=== PATIENT | female | born 1975 | race Caucasian/White ===

== ENCOUNTER 2017-07-11 20:32 | Emergency (ER) | payer OTHER ==
[~2017-07-11] VITALS: Ht 162.6 cm; Wt 63.5 kg
[~2017-07-11 20:32] MED LIST: ALPR1TAB6 PO
[2017-07-11] MEDS ORDERED: LIDOCAINE 1% VIAL ONE ×2 (21:00→21:06)
[2017-07-11 21:04] VITALS: BP 122/56
[2017-07-11] MEDS ORDERED: BOOSTRIX VACCINE SYRINGE IM STA (21:07)
--- NOTE | 2017-07-11 21:07 | ER.PDOC ---
General Chief Complaint: Extremities Stated Complaint: FOOT PAIN Time seen by MD: 21:06 Source: patient Exam Limitations: no limitations History of Present Illness Initial Comments Laceration left foot with a knife Onset: just prior to arrival Where: home Severity: moderate Context: laceration Modifying Factors: pain on movement Allergies: Coded Allergies: No Known Allergies (Unverified , 11/04/14) Home Meds Reported Medications Alprazolam (ALPRAZOLAM) 1 Mg Tablet, 1 MG PO QID, TABLET 11/04/14 Past Medical History Medical History: no pertinent history Surgical History: tubal Social History Smoking: less than 1 pack/day Alcohol Use: rarely Drug Use: none Review of Systems Constitutional: no symptoms reported EENTM: no symptoms reported Respiratory: no symptoms reported Cardiovascular: no symptoms reported Gastrointestinal: no symptoms reported Genitourinary: no symptoms reported Skin: see HPI All Other Systems: Reviewed and Negative Physical Exam General Appearance: Alert, No Apparent Distress Foot: see diagram 1 - Lac Gait: normal Neuro: sensation nml, motor nml Vascular: no vascular compromise Tendons: tendon function nml Leg/Knee/Thigh: uninjured above ankle Head/ENT: nml inspection, pharynx nml Neck/Back: nml inspection, non-tender Resp/CVS: no resp distress Abdomen: non-tender, no organomegaly Laceration/Wound Repair Laceration/Wound Repair : Wound Location: Left foot Wound Length (cm): 3 Wound cleaned: betadine Anesthesia: 1% Lidocaine Volume Anesthetic (ccs): 10 Wound's Depth, Shape: linear Irrigated w/ Saline (ccs): 50 Wound Repaired With: sutures Suture Size/Type: 4:0, prolene Suture Style: interupted Number of Sutures: 4 Sterile Dressing Applied?: Yes Departure Time of Disposition: 21:48 Disposition: 01 HOME, SELF-CARE Impression: Primary Impression: Laceration of foot, left Condition: Stable Referrals: PCP,UNKNOWN (PCP) PRIMARY CARE PROVIDER Additional Instructions: Keflex Ibuprofen Remove sutures in 7 days at your PCP or ED Clean wound daily with soap and water and apply Neosporin Duration or Time Spent with Pa: 60 mins Problem Qualifiers Primary Impression: Laceration of foot, left Encounter type: initial encounter Qualified Codes: S91.312A - Laceration without foreign body, left foot, initial encounter JESSICA CHAN MD Jul 11, 2017 21:07
[2017-07-11] MEDS ORDERED: ULTRAM PO STA (21:47)
[2017-07-11] MEDS ORDERED: ULTRAM ONE (21:48)
[2017-07-11] MEDS ORDERED: TRIPLE ANTIBIOTIC OINTMENT TP ONE (21:56)
[2017-07-11 22:26] VITALS: BP 122/56
== END 2017-07-11 21:56 | disposition home or self-care (01) ==
LOC: ER 20:32
DX: S91.312A Laceration without foreign body, left foot, initial encounter (principal); F17.200 Nicotine dependence, unspecified, uncomplicated; Z79.899 Other long term (current) drug therapy; W26.0XXA Contact with knife, initial encounter; Y93.89 Activity, other specified; Y92.098 Other place in other non-institutional residence as the place of occurrence of the external cause; Y99.8 Other external cause status
CPT/HCPCS: 12002; 90471; 99283; J2001 ×2

== ENCOUNTER 2017-07-22 19:36 | Emergency (ER) | payer OTHER ==
[~2017-07-22] VITALS: Ht 162.6 cm; Wt 63.5 kg
[2017-07-22 20:21] VITALS: BP 151/103
--- NOTE | 2017-07-22 20:22 | NUR ---
ARRIVAL PATIENT TRIAGIED AND IN WAITING ROOM, ASSESSMENT COMPLETED AT THIS TIME.
--- NOTE | 2017-07-22 21:28 | ER.PDOC ---
General Chief Complaint: Wound Recheck/Suture Removal Stated Complaint: L FOOT INJURY Time seen by MD: 21:25 Source: patient Exam Limitations: no limitations History of Present Illness Initial Procedure Done In ER: Sutures removed yesterday and bumped wound left foot today. Symptoms Since Procedure: pain Allergies: Coded Allergies: No Known Allergies (Unverified , 11/04/14) Home Meds Reported Medications Alprazolam (ALPRAZOLAM) 1 Mg Tablet, 1 MG PO QID, TABLET 11/04/14 Past Medical History Medical History: thyroid disease Surgical History: tubal LMP (females 10-50): this week Social History Smoking: cigarettes, less than 1 pack/day Alcohol Use: none Drug Use: none Constitutional: no symptoms reported EENTM: no symptoms reported Respiratory: no symptoms reported Cardiovascular: no symptoms reported Gastrointestinal: no symptoms reported Skin: see HPI All Other Systems: Reviewed and Negative Physical Exam General Appearance: alert, no distress Neuro/Vascular/Tendon: no vascular compromise, sensation nml, no tendon injury , nml ROM Skin: no infection, healing wound, tenderness (wound left lateral foot) Head/ENT: nml inspection, pharynx nml Neck/Back: nml inspection, non-tender, painless ROM Respiratory: chest non-tender, no resp. distress, breath sounds nml CVS: reg. rate & rhythm, heart sounds nml Abdomen: non-tender, no organomegaly Departure Time of Disposition: 21:27 Disposition: 01 HOME, SELF-CARE Impression: Primary Impression: Encounter for wound re-check Condition: Stable Referrals: KAM JACKSON DO (PCP) PRIMARY CARE PROVIDER Additional Instructions: Ibuprofen F/U with your PCP as needed Duration or Time Spent with Pa: 20 min JESSICA CHAN MD Jul 22, 2017 21:28
[2017-07-22 21:29] VITALS: BP 148/96
[2017-07-22 21:30] VITALS: BP 148/96
== END 2017-07-22 21:29 | disposition home or self-care (01) ==
LOC: ER 19:36
DX: S90.922A Unspecified superficial injury of left foot, initial encounter (principal); F17.210 Nicotine dependence, cigarettes, uncomplicated; E07.9 Disorder of thyroid, unspecified; Z79.899 Other long term (current) drug therapy; X58.XXXA Exposure to other specified factors, initial encounter; Y93.89 Activity, other specified; Y92.89 Other specified places as the place of occurrence of the external cause; Y99.8 Other external cause status
CPT/HCPCS: 99282

== ENCOUNTER → 2018-02-08 | Outpatient (CLI) | payer OTHER | END | disposition home or self-care (01) | LOC: LAB 15:43 | PROVIDERS: ATTEND Nurse Practitioner Women's Health | DX: E03.9 Hypothyroidism, unspecified (principal) | CPT/HCPCS: 36415; 84439; 84443 ==

== ENCOUNTER 2018-04-26 14:35 | Emergency (ER) | payer OTHER ==
[~2018-04-26] VITALS: Ht 162.6 cm; Wt 59.0 kg
[2018-04-26 14:49] VITALS: BP 165/82
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
[2018-04-26] MEDS ORDERED: TORADOL ONE (15:07)
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
[2018-04-26 15:21] VITALS: BP 165/82
[2018-04-26] MEDS ORDERED: TORADOL IM ONE (15:30)
== END 2018-04-26 15:16 | disposition home or self-care (01) ==
LOC: ER 14:35
DX: S06.0X0A Concussion without loss of consciousness, initial encounter (principal); F17.210 Nicotine dependence, cigarettes, uncomplicated; Z79.899 Other long term (current) drug therapy; Y04.0XXA Assault by unarmed brawl or fight, initial encounter; Y93.89 Activity, other specified; Y92.098 Other place in other non-institutional residence as the place of occurrence of the external cause; Y99.8 Other external cause status
CPT/HCPCS: 96372; 99283; J1885

== ENCOUNTER 2018-04-29 19:50 | Emergency (ER) | payer OTHER ==
[~2018-04-29] VITALS: Ht 162.6 cm; Wt 59.0 kg
[2018-04-29 20:17] VITALS: BP 128/66
[2018-04-29] MEDS ORDERED: TORADOL ONE (20:40)
[2018-04-29] MEDS ORDERED: NS 1000ML 1,000 ML ONE (20:40)
[2018-04-29 21:05] LABS: BASOPHIL % 0.3 % (0.0-0.2); EOSINOPHIL # 0.3 10^3/uL (0.0-0.2); EOSINOPHIL % 2.1 % (0.0-5.0); HEMOGLOBIN 11.9 g/dL (12.0-15.0); LYMPHOCYTES # 2.2 10^3/uL (1.0-4.8); LYMPHOCYTES % 18.6 % (24.0-44.0); MEAN CORP VOLUME 80.7 fL (78-100); MEAN PLATELET VOLUME 10.7 fL (7.8-11.0); MONOCYTES # 1.2 10^3/uL (0.3-0.8); MONOCYTES % 10.5 % (5.0-12.0); NEUTROPHILS % 68.2 % (41.0-85.0); RED CELL DISTRIBUTION WIDTH 18.1 % (11.5-14.5); WHITE BLOOD CELL 11.7 10^3/uL (4.5-11.0)
[2018-04-29] MEDS ORDERED: TORADOL IV STA (21:31)
[2018-04-29 21:33] LABS: CARBON DIOXIDE 30.3 mmol/L (20.0-32)
[2018-04-29 21:34] LABS: CALCIUM 9.1 mg/dL (8.4-10.5)
--- NOTE | 2018-04-29 21:46 | NUR ---
Patient states "I feel like this pain medicine has not helped one bit". MD notified. No new orders at this time.
[2018-04-29] MEDS ORDERED: NS 1000ML 1,000 ML IV ONE (22:00)
[2018-04-29] MEDS ORDERED: MORPHINE SULFATE ONE (22:29)
[2018-04-29 22:35] LABS: BILIRUBIN,URINE NEGATIVE (NEGATIVE); UROBILINOGEN,URINE NORMAL (NEGATIVE)
[2018-04-29] MEDS: MORPHINE SULFATE IV PRN (22:35)
[2018-04-29 22:45] LABS: APPEARANCE,URINE CLEAR (CLEAR); UA COLOR YELLOW (YELLOW)
--- NOTE | 2018-04-29 22:49 | NUR ---
Patient states relief from morphine. States " I feel better now. Can I go home". notified.
--- NOTE | 2018-04-29 23:50 | DIREP ---
PROCEDURE:CT ABDOMEN/PELVIS W/ CONTRAST COMPARISON:[facility], CT, CT ABD/PELVIS W/O, 03/17/2017, 09:55 PM. INDICATIONS:ABDOMINAL PAIN TECHNIQUE:Axial images were created through the abdomen and pelvis with non-ionic intravenous contrast material. No oral contrast was administered. Sagittal and coronal reconstructions were performed from source images. FINDINGS: LUNG BASES:Normal. No visible pulmonary or pleural disease. LIVER:Normal. No significant liver lesions are identified. BILIARY:Normal. No visible dilatation or calcification. PANCREAS:Normal. No lesion, fluid collection, ductal dilatation, or atrophy. SPLEEN:Normal. No enlargement or focal lesion. ADRENALS:Normal. No mass or enlargement. URINARY TRACT:Normal. No focal lesions or hydronephrosis. AORTA/VASCULAR:Normal. No aneurysm. RETROPERITONEUM:Normal. No mass or adenopathy. BOWEL/MESENTERY:The appendix is visualized and appears normal. There is no intestinal obstruction, free fluid, free air or mesenteric inflammatory changes. ABDOMINAL WALL:Normal. No mass or hernia. PELVIC ORGANS:Normal. No visible mass. Pelvic organs appropriate for patient age. BONES:Normal for age. No bony lesion or acute fracture. OTHER:Negative. CONCLUSION: No acute intra-abdominal/pelvic process demonstrated. Dictated by: Devon Harrison M.D. on 04/29/2018 at 11:44 PM
[2018-04-30] MEDS ORDERED: CIPRO PO STA (00:22)
[2018-04-30] MEDS ORDERED: CIPRO ONE (00:25)
[2018-04-30] MEDS: MORPHINE SULFATE IV PRN (00:29)
--- NOTE | 2018-04-30 00:31 | ER.PDOC ---
General Chief Complaint: Abdomen Pain Stated Complaint: HEADACHES,N/V,ABD PAIN Time seen by MD: 20:05 Source: patient Exam Limitations: no limitations History of Present Illness Initial Comments Pt6 has been having abdominal pain nausea and some headache from last 1-2 days. Di not eat anythiong out of normal. Timing/Duration: 24 hours Severity/Quality: mild Radiation: RUQ, LUQ, RLQ, LLQ Associated Symptoms: denies symptoms Exacerbated by: nothing Relieved By: nothing Allergies: Coded Allergies: No Known Allergies (Unverified , 11/04/14) Home Meds Reported Medications Alprazolam (ALPRAZOLAM) 1 Mg Tablet, 1 MG PO QID, TABLET 11/04/14 Vital Signs First Vital Signs Date Time Temp Pulse Resp B/P (MAP) Pulse Ox O2 Delivery O2 Flow Rate FiO2 04/26/18 15:21 85 04/29/18 20:12 98.7 22 95 Room Air 98.7 04/29/18 20:17 128/66 (86) Last Vital Signs Date Time Temp Pulse Resp B/P (MAP) Pulse Ox O2 Delivery O2 Flow Rate FiO2 04/29/18 20:17 98.6 90 22 128/66 (86) 98 Room Air 98.6 Past Medical History Medical History: no pertinent history Surgical History: tubal LMP (females 10-50): this week Family History Significant Family History: no pertinent family hx Social History Smoking: cigarettes Alcohol Use: occassionally Drug Use: none Reviewed Nursing Reviewed: Nursing Assessment Constitutional: no symptoms reported EENTM: no symptoms reported Respiratory: no symptoms reported Cardiovascular: no symptoms reported Gastrointestinal: abdominal pain, nausea Genitourinary: no symptoms reported Musculoskeletal: no symptoms reported Skin: no symptoms reported Psychiatric/Neurological: no symptoms reported Endocrine: no symptoms reported Hematologic/Lymphatic: no symptoms reported All Other Systems: Reviewed and Negative Physical Exam General Appearance: No Apparent Distress HEENT: PERRL/EOMI, Normal ENT Inspection Neck: Non-Tender Respiratory: chest non-tender Cardiovascular: Normal Peripheral Pulses Gastrointestinal: Normal Bowel Sounds Back: Normal Inspection Extremities: Normal Range of Motion Neurologic/Psychiatric: No Motor/Sensory Deficits Skin: Normal Color Lymphatic: No Adenopathy Results/Orders Results/Orders Laboratory Tests Test 04/29/18 21:00 04/29/18 22:25 White Blood Count 11.7 10^3/uL (4.5-11.0) Red Blood Count 4.76 10^6/uL (4.00-5.20) Hemoglobin 11.9 g/dL (12.0-15.0) Hematocrit 38.4 % (36.0-46.0) Mean Corpuscular Volume 80.7 fL (78-100) Mean Corpuscular Hemoglobin 25.0 pg (26-34) Mean Corpuscular Hemoglobin Concent 31.0 g/dL (33-37) Red Cell Distribution Width 18.1 % (11.5-14.5) Platelet Count 365 10^3/uL (150-400) Mean Platelet Volume 10.7 fL (7.8-11.0) Neutrophils (%) (Auto) 68.2 % (41.0-85.0) Lymphocytes (%) (Auto) 18.6 % (24.0-44.0) Monocytes (%) (Auto) 10.5 % (5.0-12.0) Neutrophils # (Auto) 8.0 10^3/uL (1.8-7.7) Lymphocytes # (Auto) 2.2 10^3/uL (1.0-4.8) Monocytes # (Auto) 1.2 10^3/uL (0.3-0.8) Absolute Immature Granulocyte (auto 0.03 10^3 u/L (0-2) Eosinophils % 2.1 % (0.0-5.0) Basophils % 0.3 % (0.0-0.2) Basophils # 0.0 10^3/uL (0.0-0.1) Eosinophil Count 0.3 10^3/uL (0.0-0.2) Sodium Level 140 mmol/L (132-145) Potassium Level 4.3 mmol/L (3.6-5.2) Chloride Level 102.0 mmol/L (96-109) Carbon Dioxide Level 30.3 mmol/L (20.0-32) Anion Gap 12.0 Blood Urea Nitrogen 9 mg/dL (7-18) Creatinine 0.79 mg/dL (0.59-1.40) Estimated GFR () 96.6 (>/=60) BUN/Creatinine Ratio 11.0 Glucose Level 115 mg/dL (70-110) Calcium Level 9.1 mg/dL (8.4-10.5) Total Bilirubin 0.3 mg/dL (0.2-1.0) Aspartate Amino Transf (AST/SGOT) 16 U/L (0-35) Alanine Aminotransferase (ALT/SGPT) 25 U/L (12-78) Alkaline Phosphatase 77 U/L (50-136) Total Protein 7.8 g/dL (6.4-8.2) Albumin 3.7 g/dL (3.4-5.0) Globulin 4.1 Amylase Level 49 U/L (25-115) Lipase 142 U/L (114-286) Percent Immature Gran (Cell Imm) 0.30 % (0.00-0.50) Urine Collection Type UNKNOWN Urine Color YELLOW (YELLOW) Urine Appearance CLEAR (CLEAR) Urine Bilirubin NEGATIVE MG/DL (NEGATIVE) Urine Ketones NEGATIVE (NEGATIVE) Urine Specific [place] 1.010 (1.005-1.035) Urine pH 7 (5.0-6.0) Urine Protein NEGATIVE (NEGATIVE) Urine Urobilinogen NORMAL (NEGATIVE) Urine Nitrate NEGATIVE (NEGATIVE) Urine Leukocyte Esterase 500/uL 2+ (NEGATIVE) Urine Blood NEGATIVE (NEGATIVE) Urine RBC NONE SEEN RBC/HPF (NONE Urine WBC 2-5 WBC/HPF (0-2) Urine Squamous Epithelial Cells MANY #/HPF (FEW) Urine Bacteria NONE SEEN (NONE SEEN) Urine Glucose NORMAL (NEGATIVE) Urine HCG, Qualitative NEGATIVE (NEGATIVE) Administered Medications Medications (Trade) Dose Ordered Sig/Candice Route PRN Reason Start Time Stop Time Status Last Admin Dose Admin Ketorolac Tromethamine (Toradol) 30 mg STAT STAT IV 04/29/18 21:31 04/29/18 21:32 DC 04/29/18 21:32 Sodium Chloride 1,000 ml @ 0 mls/hr Q0M ONCE IV 04/29/18 22:00 04/29/18 22:01 DC 04/29/18 21:32 Morphine Sulfate (Morphine Sulfate) 2 mg OT PRN IV PAIN 04/29/18 22:30 05/29/18 22:29 04/29/18 22:35 Progress Progress Pt was given a dose of Toradol and Morphine after which his pain was normal. UA showed UTI. Pt started on Cipro. Course Sepsis Screening Results: Posi: POSITIVE SEPSIS RISK Vitals & review Data Vital Sign - Last 24 Hours 1204/29/18 04/29/18 20:12 20:12 20:17 Temp 98.7 98.6 98.6 98.7 98.6 98.6 Pulse 90 87 90 Resp 22 22 22 B/P (MAP) 128/66 (86) Pulse Ox 95 98 O2 Delivery Room Air Room Air Laboratory Tests Test 04/29/18 21:00 04/29/18 22:25 White Blood Count 11.7 10^3/uL Red Blood Count 4.76 10^6/uL Hemoglobin 11.9 g/dL Hematocrit 38.4 % Mean Corpuscular Volume 80.7 fL Mean Corpuscular Hemoglobin 25.0 pg Mean Corpuscular Hemoglobin Concent 31.0 g/dL Red Cell Distribution Width 18.1 % Platelet Count 365 10^3/uL Mean Platelet Volume 10.7 fL Neutrophils (%) (Auto) 68.2 % Lymphocytes (%) (Auto) 18.6 % Monocytes (%) (Auto) 10.5 % Neutrophils # (Auto) 8.0 10^3/uL Lymphocytes # (Auto) 2.2 10^3/uL Monocytes # (Auto) 1.2 10^3/uL Absolute Immature Granulocyte (auto 0.03 10^3 u/L Eosinophils % 2.1 % Basophils % 0.3 % Basophils # 0.0 10^3/uL Eosinophil Count 0.3 10^3/uL Sodium Level 140 mmol/L Potassium Level 4.3 mmol/L Chloride Level 102.0 mmol/L Carbon Dioxide Level 30.3 mmol/L Anion Gap 12.0 Blood Urea Nitrogen 9 mg/dL Creatinine 0.79 mg/dL Estimated GFR () 96.6 BUN/Creatinine Ratio 11.0 Glucose Level 115 mg/dL Calcium Level 9.1 mg/dL Total Bilirubin 0.3 mg/dL Aspartate Amino Transf (AST/SGOT) 16 U/L Alanine Aminotransferase (ALT/SGPT) 25 U/L Alkaline Phosphatase 77 U/L Total Protein 7.8 g/dL Albumin 3.7 g/dL Globulin 4.1 Amylase Level 49 U/L Lipase 142 U/L Percent Immature Gran (Cell Imm) 0.30 % Urine Collection Type UNKNOWN Urine Color YELLOW Urine Appearance CLEAR Urine Bilirubin NEGATIVE MG/DL Urine Ketones NEGATIVE Urine Specific [place] 1.010 Urine pH 7 Urine Protein NEGATIVE Urine Urobilinogen NORMAL Urine Nitrate NEGATIVE Urine Leukocyte Esterase 500/uL 2+ Urine Blood NEGATIVE Urine RBC NONE SEEN RBC/HPF Urine WBC 2-5 WBC/HPF Urine Squamous Epithelial Cells MANY #/HPF Urine Bacteria NONE SEEN Urine Glucose NORMAL Urine HCG, Qualitative NEGATIVE Current Medications Medications (Trade) Dose Ordered Sig/Candice PRN Reason Start Time Stop Time Status Last Admin Morphine Sulfate (Morphine Sulfate) 2 mg OT PRN PAIN 04/29/18 22:30 05/29/18 22:29 04/29/18 22:35 Departure Time of Disposition: 12:29 Disposition: 01 HOME, SELF-CARE Impression: Primary Impression: UTI (urinary tract infection) Condition: Stable Referrals: KAM JACKSON DO (PCP) PRIMARY CARE PROVIDER Duration or Time Spent with Pa: 20 Critical Care Note Total Time (mins): 0 JOSI PEARSON MD Apr 30, 2018 00:31
[2018-04-30 00:34] VITALS: BP 128/66
== END 2018-04-30 00:42 | disposition home or self-care (01) ==
LOC: ER 19:50
DX: N39.0 Urinary tract infection, site not specified (principal)
CPT/HCPCS: 36415; 74177; 80053; 81000; 81025; 82150; 83690; 85025; 96361; 96374; 96375; 99284; J1885; J2270; J7030; Q9965

== ENCOUNTER 2018-06-17 17:56 | Emergency (ER) | payer OTHER ==
[~2018-06-17] VITALS: Ht 162.6 cm; Wt 59.0 kg
--- NOTE | 2018-06-17 18:10 | ER.PDOC ---
General Chief Complaint: Requesting Medical Care Stated Complaint: ABD PAIN Time seen by MD: 18:33 Source: patient Exam Limitations: no limitations History of Present Illness Initial Comments CT ABD 2 MONTHS AGO - NORMAL Radiation: no radiation Associated Symptoms: nausea/vomiting Exacerbated by: deep breaths, food Allergies: Coded Allergies: No Known Allergies (Unverified , 11/04/14) Home Meds Reported Medications Alprazolam (ALPRAZOLAM) 1 Mg Tablet, 1 MG PO QID, TABLET 11/04/14 Vital Signs First Vital Signs Date Time Temp Pulse Resp B/P (MAP) Pulse Ox O2 Delivery O2 Flow Rate FiO2 04/30/18 00:34 90 Last Vital Signs Date Time Temp Pulse Resp B/P (MAP) Pulse Ox O2 Delivery O2 Flow Rate FiO2 04/30/18 00:34 90 Past Medical History Surgical History: tubal Social History Drug Use: none Reviewed Nursing Reviewed: Vital Signs, Abn. Noted All Other Systems: Reviewed and Negative Physical Exam General Appearance: No Apparent Distress, WD/WN HEENT: PERRL/EOMI, Normal ENT Inspection, TMs Normal, Pharynx Normal Neck: Non-Tender, Full Range of Motion, Supple, Normal Inspection Respiratory: chest non-tender, lungs clear, normal breath sounds, no respiratory distress, no accessory muscle use Cardiovascular: Normal Peripheral Pulses, Regular Rate, Rhythm, No Edema, No Gallop, No JVD, No Murmur Gastrointestinal: Tenderness Back: Normal Inspection, No CVA Tenderness, No Vertebral Tenderness Extremities: Normal Range of Motion, Non-Tender, Normal Inspection, No Pedal Edema, No Calf Tenderness, Normal Capillary Refill, Pelvis Stable 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, No Motor/Sensory Deficits, Alert, Normal Mood/Affect, Oriented x 3 Skin: Normal Color, Warm/Dry Results/Orders Results/Orders us uterine fibroids Progress Progress TO DR ERAZO instructed patient to follow up with pmd and ob for fibroids and uti and to return for any worsening pain Course Sepsis Screening Results: Posi: POSITIVE SEPSIS RISK Duration or Total Time Spent w: 20 Departure Time of Disposition: 19:00 Disposition: 01 HOME, SELF-CARE Impression: Primary Impression: Abdominal pain Additional Impressions: Uterine fibroid UTI (urinary tract infection) Condition: Stable Referrals: KAM JACKSON DO (PCP) PRIMARY CARE PROVIDER Comments patient given rx for tramadol and Macrodantin Duration or Time Spent with Pa: 20 Problem Qualifiers TAMI ISSA MD Jun 17, 2018 18:10 JEROME ERAZO MD Jun 17, 2018 21:58
[2018-06-17 18:14] VITALS: BP 111/69
--- NOTE | 2018-06-17 18:15 | NUR ---
ARRIVAL PATIENT ARRIVED TO ED4 AMBULATORY WITH FRIEND, C/O OF ABD PAIN THAT STARTED X3 DAYS AGO, PAIN WORSE TODAY, CAME TO THE ED FOR FURTHER EVAL.
[2018-06-17] MEDS ORDERED: TORADOL ONE (18:17)
[2018-06-17] MEDS ORDERED: ZOFRAN ODT ONE ×2 (18:17→22:07)
[2018-06-17] MEDS ORDERED: NORCO 10MG PO ONE (18:17)
[2018-06-17] MEDS ORDERED: NORCO 10MG PO STA (18:18)
[2018-06-17] MEDS ORDERED: ZOFRAN ODT SL STA ×2 (18:18→22:05)
--- NOTE | 2018-06-17 18:24 | NUR ---
DANIELA ROWE FROM ULTRASOUND NOTIFIED OF ULTRASOUND ORDER.
[2018-06-17 18:28] LABS: BASOPHIL % 0.3 % (0.0-0.2); EOSINOPHIL # 0.1 10^3/uL (0.0-0.2); EOSINOPHIL % 1.2 % (0.0-5.0); HEMOGLOBIN 12.2 g/dL (12.0-15.0); LYMPHOCYTES # 1.8 10^3/uL (1.0-4.8); LYMPHOCYTES % 17.1 % (24.0-44.0); MEAN CELL HGB 25.7 pg (26-34); MEAN CELL HGB CONCENTRATION 31.8 g/dL (33-37); MEAN CORP VOLUME 80.8 fL (78-100); MONOCYTES % 9.5 % (5.0-12.0); NEUTROPHIL # 7.8 10^3/uL (1.8-7.7); NEUTROPHILS % 71.7 % (41.0-85.0); RED CELL DISTRIBUTION WIDTH 16.5 % (11.5-14.5); WHITE BLOOD CELL 10.8 10^3/uL (4.5-11.0)
[2018-06-17] MEDS ORDERED: TORADOL IM ONE (18:30)
[2018-06-17 18:50] LABS: CALCIUM 8.4 mg/dL (8.4-10.5); CARBON DIOXIDE 27.6 mmol/L (20.0-32)
[2018-06-17 19:11] LABS: APPEARANCE,URINE CLOUDY (CLEAR); BILIRUBIN,URINE NEGATIVE (NEGATIVE); UA COLOR YELLOW (YELLOW); UROBILINOGEN,URINE NORMAL (NEGATIVE)
--- NOTE | 2018-06-17 21:42 | DIREP ---
PROCEDURE:US PELVIS COMPLETE COMPARISON:None. INDICATIONS:PELVIC PAIN, DIFFUSELY TENDER, NO GAURDING TECHNIQUE:Pelvic ultrasound using transabdominal technique. Endovaginal images were also obtained for better assessment of the uterus and adnexa. FINDINGS: UTERUS:Uterus measures 9.7 x 4.8 x 4.9 cm. Heterogeneous myometrium with 2 uterine fibroids measuring 2.4 and 2.3 cm along the anterior uterine body. ENDOMETRIUM:Thickness is 9 mm. RIGHT OVARY:Normal appearance. Right ovary measures 2.6 x 2.0 x 1.6 cm. LEFT OVARY:Normal appearance. Left ovary measures 3.4 x 2.2 x 2.1 cm. CUL-DE-SAC:Normal. OTHER:Negative. CONCLUSION: 1. Uterine fibroids. 2. Ultrasound otherwise unremarkable for premenopausal female. Dictated by: Devon Harrison M.D. on 06/17/2018 at 09:40 PM
[2018-06-17 22:20] VITALS: BP 112/72
[2018-06-17 22:28] VITALS: BP 112/72
== END 2018-06-17 22:22 | disposition home or self-care (01) ==
LOC: ER 17:56
DX: D25.9 Leiomyoma of uterus, unspecified (principal); N39.0 Urinary tract infection, site not specified; Z79.899 Other long term (current) drug therapy
CPT/HCPCS: 36415; 76830; 76856; 80053; 80307; 81000; 82150; 83690; 84703; 85025; 85610; 85730; 86140; 86677; 87086; 96372; 99284; J1885; Q0162 ×2

== ENCOUNTER → 2018-08-19 | Outpatient (CLI) | payer OTHER | END | disposition home or self-care (01) | LOC: LAB 13:58 | PROVIDERS: ATTEND Nurse Practitioner Women's Health | DX: E03.9 Hypothyroidism, unspecified (principal) | CPT/HCPCS: 36415; 84439; 84443 ==

== ENCOUNTER 2018-10-28 13:53 | Emergency (ER) | payer OTHER ==
[~2018-10-28] VITALS: Ht 162.6 cm; Wt 54.4 kg
[2018-10-28] MEDS ORDERED: TORADOL IM STA (14:31)
[2018-10-28 14:34] VITALS: BP 110/70
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
[2018-10-28 14:46] LABS: BASOPHIL % 0.4 % (0.0-0.2); EOSINOPHIL # 0.2 10^3/uL (0.0-0.2); EOSINOPHIL % 1.7 % (0.0-5.0); HEMOGLOBIN 11.7 g/dL (12.0-15.0); LYMPHOCYTES # 1.6 10^3/uL (1.0-4.8); LYMPHOCYTES % 15.3 % (24.0-44.0); MEAN CELL HGB 27.1 pg (26-34); MEAN CELL HGB CONCENTRATION 31.8 g/dL (33-37); MEAN CORP VOLUME 85.2 fL (78-100); MONOCYTES # 1.5 10^3/uL (0.3-0.8); NEUTROPHIL # 7.4 10^3/uL (1.8-7.7); NEUTROPHILS % 68.3 % (41.0-85.0); RED CELL DISTRIBUTION WIDTH 16.2 % (11.5-14.5); WHITE BLOOD CELL 10.7 10^3/uL (4.5-11.0)
[2018-10-28] MEDS ORDERED: TORADOL ONE (14:56)
[2018-10-28 15:07] LABS: CALCIUM 8.6 mg/dL (8.4-10.5); CARBON DIOXIDE 27.5 mmol/L (20.0-32)
--- NOTE | 2018-10-28 15:22 | DIREP ---
PROCEDURE:CT ABD/PELVIS WITHOUT CONTRAST TECHNIQUE:No oral contrast was given. Axial cuts were obtained from the dome of the diaphragm to the ischial tuberosities. No intravenous contrast was given. The images were viewed at lung, liver, bone, and soft tissue settings. Sagittal and coronal reconstructions are provided. COMPARISON:[facility], CT, CT ABD/PELVIS W/ CONTRAST, 04/29/2018, 11:12 PM. INDICATIONS:Lower abdominal pain FINDINGS: LOWER CHEST:The lung bases are clear. LIVER:Normal. BILIARY:Normal. PANCREAS:Normal. SPLEEN:Normal. KIDNEYS:No evidence of urinary calculi. No evidence of obstructive uropathy. Renal morphology appears unremarkable. ADRENALS:Normal. AORTA/VASCULAR:Normal. RETROPERITONEUM:Normal. BOWEL/MESENTERY:Bowel evaluation is limited by the lack of oral contrast. No evidence of bowel obstruction, free intraperitoneal air, or abscess. The appendix is not visualized; however, no adjacent inflammatory changes are present to suggest acute appendicitis. ABDOMINAL WALL:Normal. PELVIS:Normal. BONES:Normal OTHER: The absence of IV contrast limits evaluation of the soft tissues. CONCLUSION:No acute intra-abdominal process identified on this noncontrast exam Dictated by: Justin Bunn M.D. on 10/28/2018 at 03:15 PM
--- NOTE | 2018-10-28 16:05 | NUR ---
STATUS PT STATES PAIN IS BETTER SINCE TORADOL
[2018-10-28 16:53] VITALS: BP 110/70
--- NOTE | 2018-10-28 16:53 | NUR ---
DISMISSAL PT DISCHARGED IN STABLE CONDITION.
== END 2018-10-28 16:53 | disposition home or self-care (01) ==
LOC: ER 13:53
DX: D25.9 Leiomyoma of uterus, unspecified (principal); N92.0 Excessive and frequent menstruation with regular cycle; E07.9 Disorder of thyroid, unspecified; F17.210 Nicotine dependence, cigarettes, uncomplicated; Z79.899 Other long term (current) drug therapy
CPT/HCPCS: 36415; 74176; 80053; 84703; 85025; 85610; 85730; 96372; 99285; J1885

== ENCOUNTER 2018-10-30 11:33 | Emergency (ER) | payer OTHER ==
[~2018-10-30] VITALS: Ht 162.6 cm; Wt 54.4 kg
--- NOTE | 2018-10-30 11:58 | ER.PDOC ---
General Chief Complaint: Requesting Medical Care Stated Complaint: ABD PAIN Time seen by MD: 11:57 Source: patient Exam Limitations: no limitations History of Present Illness Initial Comments 43 Y/O F WITH HX TO ED WITH OFF AND ON ABD PAIN X SEVERAL MONTHS. SEEN AT [facility] WITH LABS AND CT SCAN ABD/PELVIS DONE ON 10/28/18- ALL NEG. S/P PELVIC US 06/17/18- SHOWED 2 UTERINE FIBROIDS -2.4CM AND 2.3CM ON 06/17/18. TO ED WITH EXACT SAME PAIN TODAY.PATIENT DOES AGREE TO MARIJUANA USE. NO VOMITING, NO CHANGE IN BOWELS, NO VAG D/C, IS SPOTTING TODAY. Timing/Duration: other Severity/Quality: severe Radiation: no radiation, RUQ, LUQ, RLQ, LLQ, epigastric, other Exacerbated by: nothing Relieved By: nothing Allergies: Coded Allergies: No Known Allergies (Unverified , 11/04/14) Home Meds Reported Medications Alprazolam (ALPRAZOLAM) 1 Mg Tablet, 1 MG PO QID, TABLET 11/04/14 Vital Signs First Vital Signs Date Time Temp Pulse Resp B/P (MAP) Pulse Ox O2 Delivery O2 Flow Rate FiO2 10/28/18 14:34 97.6 10/28/18 16:53 88 Last Vital Signs Date Time Temp Pulse Resp B/P (MAP) Pulse Ox O2 Delivery O2 Flow Rate FiO2 10/28/18 16:53 207.7 88 Past Medical History Medical History: other Surgical History: tubal Family History Significant Family History: no pertinent family hx Social History Smoking: cigarettes, greater than 1 pack/day Alcohol Use: occassionally Drug Use: marijuana Reviewed Nursing Reviewed: Vital Signs, Abn. Noted, Nursing Assessment Constitutional: no symptoms reported EENTM: no symptoms reported Respiratory: no symptoms reported Cardiovascular: no symptoms reported Gastrointestinal: abdomen distended, abdominal pain, nausea Genitourinary: no symptoms reported Musculoskeletal: no symptoms reported Skin: no symptoms reported Psychiatric/Neurological: anxiety Endocrine: no symptoms reported Hematologic/Lymphatic: no symptoms reported Physical Exam General Appearance: WD/WN, Anxious, Moderate Distress HEENT: PERRL/EOMI, Normal ENT Inspection, TMs Normal, Pharynx Normal Neck: Non-Tender, Full Range of Motion, Supple, Normal Inspection Respiratory: chest non-tender, lungs clear, normal breath sounds, no respiratory distress, no accessory muscle use Cardiovascular: Normal Peripheral Pulses, Regular Rate, Rhythm, No Edema Gastrointestinal: Normal Bowel Sounds, Tenderness Back: Normal Inspection, No CVA Tenderness, No Vertebral Tenderness Extremities: Normal Range of Motion, Non-Tender, Normal Inspection, No Pedal Edema, No Calf Tenderness, Normal Capillary Refill, Pelvis Stable 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 NO R/CVA/G. Progress Progress AT D/C PATIENT STATES FEELS BETTER, DIFF DX IN DETAIL, DRINK MORE WATER, STOP MARIJUANA USE, POSS CAUSE OF PAIN DISCUSSED, FOLLOW UP WITH YOUR DR, RX TRAMADOL 50 MG #10, MACROBID, PHENERGAN. Course Sepsis Screening Results: Posi: POSITIVE SEPSIS RISK Duration or Total Time Spent w: 60 mins Sepsis Infection Criteria Pres: None Departure Time of Disposition: 13:23 Disposition: 01 HOME, SELF-CARE Impression: Primary Impression: Abdominal pain Additional Impression: UTI (urinary tract infection) Condition: Stable Patient Instructions: Abdominal Pain (Nonspecific), Urinary Tract Infection Referrals: PCP,UNKNOWN (PCP) PRIMARY CARE PROVIDER Additional Instructions: TO ED IF NO BETTER OR WORSE, FOLLOW UP WITH YOUR DR, RX TRAMADOL 50 MG, #10, MACROBID, PHENERGAN, STOP MARIJUANA USE, DRINK MORE WATER. Duration or Time Spent with Pa: 30 MIN Problem Qualifiers SARA HATCH DO Oct 30, 2018 11:58
[2018-10-30 11:59] VITALS: BP 150/95
--- NOTE | 2018-10-30 11:59 | NUR ---
ARRIVAL PATIENT ARRIVED TO ED4 AMBULATORY, C/O OF ABDOMINAL PAIN OFF AND ON FOR WEEKS, WAS SEEN 2 DAYS AGO IN THE ED FOR SAME SYMPTOMS, SENT HOME TO FOLLOW UP WITH HER OBGYN, HAS NOT FOLLOW UP OF TODAY, CAME BACK TODAY FOR FURTHER EVAL.
[2018-10-30] MEDS ORDERED: PHENERGAN IM STA (12:18)
[2018-10-30] MEDS ORDERED: MORPHINE SULFATE IM STA (12:18)
[2018-10-30] MEDS ORDERED: BENTYL PO STA (12:18)
[2018-10-30] MEDS ORDERED: PHENERGAN ONE (12:22)
[2018-10-30] MEDS ORDERED: BENTYL ONE (12:22)
[2018-10-30 12:43] LABS: BILIRUBIN,URINE NEGATIVE (NEGATIVE)
[2018-10-30 12:47] LABS: APPEARANCE,URINE CLOUDY (CLEAR)
[2018-10-30 12:48] LABS: UA COLOR BROWN (YELLOW)
[2018-10-30] MEDS ORDERED: ROCEPHIN IM IM STA (13:10)
[2018-10-30] MEDS ORDERED: TORADOL IM STA (13:15)
[2018-10-30] MEDS ORDERED: TORADOL ONE (13:16)
[2018-10-30] MEDS ORDERED: ROCEPHIN ONE (13:16)
[2018-10-30] MEDS ORDERED: LIDOCAINE 1% VIAL ONE (13:16)
[2018-10-30 13:23] VITALS: BP 109/71
[2018-10-30 13:24] VITALS: BP 109/71
[2018-10-30] MEDS ORDERED: TORADOL IM ONE (13:30)
== END 2018-10-30 13:38 | disposition home or self-care (01) ==
LOC: ER 11:33
DX: N39.0 Urinary tract infection, site not specified (principal); D25.9 Leiomyoma of uterus, unspecified; F17.210 Nicotine dependence, cigarettes, uncomplicated; Z79.899 Other long term (current) drug therapy
CPT/HCPCS: 81000; 81025; 87077; 87086; 87186; 96372 ×2; 99284; J0696; J1885; J2001; J2550

== ENCOUNTER → 2018-12-02 | Outpatient (CLI) | payer OTHER | END | disposition home or self-care (01) | LOC: LAB 16:02 | PROVIDERS: ATTEND Nurse Practitioner Women's Health | DX: E03.9 Hypothyroidism, unspecified (principal) | CPT/HCPCS: 36415; 84439; 84443 ==

== ENCOUNTER 2020-01-16 12:56 | Emergency (ER) | payer OTHER | END 2020-01-16 13:35 | disposition left against medical advice (07) | LOC: ER 12:56 | DX: M54.9 Dorsalgia, unspecified (principal); Z53.21 Procedure and treatment not carried out due to patient leaving prior to being seen by health care provider ==

== ENCOUNTER 2020-05-18 16:11 | Emergency (ER) | payer BC, OTHER ==
[~2020-05-18] VITALS: Ht 162.6 cm; Wt 60.8 kg
[2020-05-18 16:35] VITALS: BP 152/76
--- NOTE | 2020-05-18 17:33 | ER.PDOC ---
General Chief Complaint: Skin Lump Stated Complaint: LUMP Time seen by MD: 17:25 Source: patient Exam Limitations: no limitations History of Present Illness Initial Comments Small lump left forearm of unknown duration, saw it a few days ago, no pain. She also wants a pain shot for her chronic low back pain. Recent Injury: No Where: home Severity: mild Exacerbated By: nothing Relieved By: nothing Quality: swelling Allergies: Coded Allergies: No Known Allergies (Unverified , 11/04/14) Home Meds Reported Medications Alprazolam (ALPRAZOLAM) 1 Mg Tablet, 1 MG PO QID, TABLET 11/04/14 Past Medical History Medical History: other Surgical History: tubal, other (Chronic back pain) Family History Significant Family History: no pertinent family hx Social History Alcohol Use: occassionally Drug Use: marijuana Review of Systems Constitutional: no symptoms reported EENTM: no symptoms reported Respiratory: no symptoms reported Cardiovascular: no symptoms reported Gastrointestinal: no symptoms reported Musculoskeletal: see HPI Skin: see HPI All Other Systems: Reviewed and Negative Physical Exam General Appearance: alert, no distress Upper Extremity: nml inspection, non-tender, no edema, nml ROM, joints nml Skin: color nml, warm/dry Vascular: no vascular compromise Neuro/Psych: sensation nml, motor nml Central Exam: oriented X3, CN's nml as tested, nml speech, nml cognition, nml mood/affect Neck/Back: nml inspection Respiratory: no resp distress, breath sounds nml CVS: reg rate & rhythm, heart sounds nml Abdomen: non-tender, no organomegaly, nml bowels sounds Comments small mobile lump of 0.5cm x 0.5cm left upper forearm which is none tender to palpation. Results/Orders Results/Orders Vital Signs Date Time Temp Pulse Resp B/P (MAP) Pulse Ox O2 Delivery O2 Flow Rate FiO2 05/18/20 16:35 98.3 103 20 97 05/18/20 16:35 98.3 103 20 97 ER DEPART Departure Time of Disposition: 17:31 Disposition: 01 HOME, SELF-CARE Impression: Primary Impression: Lump Additional Impression: Back pain Condition: Stable Referrals: AYAKA CRUZ (PCP) PRIMARY CARE PROVIDER Additional Instructions: F/U with Dr. Fournier next week, call for appointment Continue home medications Return to ED if worsening or concerns Duration or Time Spent with Pa: 10 min Problem Qualifiers Additional Impression: Back pain Back pain location: back pain in unspecified location Chronicity: chronic Back pain laterality: unspecified Qualified Codes: M54.9 - Dorsalgia, unspecified; G89.29 - Other chronic pain JESSICA CHAN MD May 18, 2020 17:33
[2020-05-18] MEDS: TORADOL IM STA (17:48)
[2020-05-18] MEDS ORDERED: TORADOL ONE (17:49)
== END 2020-05-18 16:55 | disposition home or self-care (01) ==
LOC: ER 16:11
DX: G89.29 Other chronic pain (principal); M54.9 Dorsalgia, unspecified; F12.90 Cannabis use, unspecified, uncomplicated; Z79.899 Other long term (current) drug therapy
CPT/HCPCS: 96372; 99284; J1885

== ENCOUNTER 2020-06-13 13:41 | Emergency (ER) | payer BC ==
[~2020-06-13] VITALS: Ht 162.6 cm; Wt 57.6 kg
--- NOTE | 2020-06-13 13:47 | NUR ---
ARRIVAL PT ARRIVED TO ED WITH C/O LEFT KNEE AND HEAD PAIN AFTER SLIPPIN ON HER PORCH. RAISED AREA NOTED TO BACK OF HEAD WITH NO OPEN AREAS, NO BLEEDING NOTED. SCRAPED NOTED TO LEFT KNEE, NO SWELLING NOTED. PT DENIES ANY LOC. BEDSIDE MONITORS APPLIED. VITAL SIGNS STABLE. PEARLA. BED IN LOW LOCKED POSITION.
[2020-06-13 13:52] VITALS: BP 132/93
--- NOTE | 2020-06-13 14:39 | ER.PDOC ---
General Chief Complaint: Head Injury Stated Complaint: HEAD INJ Time seen by MD: 14:00 Source: patient Exam Limitations: no limitations History of Present Illness Initial Comments Patient indicated that she tripped and fell in her house. She denied any syncopal sensation or anything. She just tripped over her "other foot. In this fall, she hurt her left great toe. She is not exactly sure when that she stubbed it against something or dented too far. She also stated that she hit the back of her head and has a small contusion on the back of her head. She did not have any loss of consciousness.And she is not on any anticoagulation. This occurred approximately 24 hours ago Occurred: yesterday Where: home Severity: mild Injuries/Pain Location: head, lower extremity, other (Only has pain in the left and the left great toe) Loss of Consciousness: No Loss of Consciousness Modifying Factors: improves with rest Associated Symptoms: denies symptoms Allergies: Coded Allergies: No Known Allergies (Unverified , 11/04/14) MEDS Reported Medications Alprazolam (ALPRAZOLAM) 1 Mg Tablet, 1 MG PO QID, TABLET 11/04/14 Past Medical History Medical History: thyroid disease, other Surgical History: tubal Social History Smoking: non-smoker Alcohol Use: none Drug Use: marijuana Review of Systems Musculoskeletal: see HPI All Other Systems: Reviewed and Negative Physical Exam General Appearance: No Apparent Distress, WD/WN Head: Contusions, Other (Patient has a contusion of the occiput just above the inion. This is a small area of tenderness. I do not feel any edema or anything in that area. Patient was indicating her inion as the point of pain and she thought it was the area that was swollen.) Eyes: bilateral eye normal inspection Ears, Nose, Mouth, Throat: Hearing Grossly Normal, No Evidence of ENT Injury, No Dental Injury Neck: Non-Tender, Normal Alignment, Nexus criteria neg, Normal Inspection Cardiovascular/Respiratory: Regular Rate, Rhythm, No M/R/G, Normal Peripheral Pulses, No JVD, Normal Breath Sounds, No Respiratory Distress Gastrointestinal: Normal Bowel Sounds, No Organomegaly, No Pulsatile Mass, Non Tender, Soft Back: Normal Inspection, No CVA Tenderness, No Vertebral Tenderness Extremities: Tenderness, Other (The only significant tenderness that she complains of is to her left knee which has a small contusion over the tibial tuberosity and her left great toe. Patient has full range of motion in the knee. She has no medial collateral and lateral collateral ligament stability with no tenderness. She has no laxity of her anterior posterior cruciate lig aments. She has tenderness to the distal phalanx of the toe. I do not believe it is fractured. 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, No Motor/Sensory Deficits, Alert, Normal Mood/Affect, Oriented x 3 Skin: Normal Color, Warm/Dry [place] Coma Score Best Eye Response: (4) Open Spontaneously Best Verbal Response: (5) Oriented Best Motor Response: (6) Obeys Commands [place] Total: 15 Results/Orders Results/Orders Orders - SHAYE LIPSCOMB MD Xr Foot Lt (06/13/20 14:32) Vital Signs Date Time Temp Pulse Resp B/P (MAP) Pulse Ox O2 Delivery O2 Flow Rate FiO2 06/13/20 13:58 16 06/13/20 13:52 97.9 80 16 06/13/20 13:52 97.9 80 16 132/93 (106) 99 Room Air 06/13/20 13:52 97.9 80 16 99 Progress Progress X-ray of left foot shows no evidence of any acute fractures. Patient was offered head CT but she declined because she does not want more medical bills.Patient certainly does not have a focal findings of any type that would suggest a brain injury.I went all reality, I am okay sending her home without the head CT. ER DEPART Departure Time of Disposition: 15:02 Disposition: 01 HOME, SELF-CARE Impression: Primary Impression: Fall Additional Impressions: Contusion of head Left foot pain Condition: Stable Patient Instructions: Head Injury, Adult, [id number] Referrals: AYAKA CRUZ (PCP) PRIMARY CARE PROVIDER Comments Tramadol 10mg, one po tid prn pain, #20 Duration or Time Spent with Pa: 20m Problem Qualifiers SHAYE LIPSCOMB MD Jun 13, 2020 14:39
[2020-06-13 15:11] VITALS: BP 121/82
--- NOTE | 2020-06-13 15:27 | DIREP ---
PROCEDURE:XRAY FOOT MIN 3 VWS-LT COMPARISON:None. INDICATIONS:trauma FINDINGS: BONES:No fractures or other acute bony abnormalities. JOINTS:Mild hallux valgus. SOFT TISSUES:Normal. OTHER:No additional findings. CONCLUSION:No acute left foot abnormalities. Dictated by: Luis Abreu M.D. on 06/13/2020 at 03:24 PM
== END 2020-06-13 15:12 | disposition home or self-care (01) ==
LOC: ER 13:41
DX: S00.93XA Contusion of unspecified part of head, initial encounter (principal); M79.672 Pain in left foot; Z79.899 Other long term (current) drug therapy; W01.0XXA Fall on same level from slipping, tripping and stumbling without subsequent striking against object, initial encounter; Y93.89 Activity, other specified; Y92.098 Other place in other non-institutional residence as the place of occurrence of the external cause; Y99.8 Other external cause status
CPT/HCPCS: 99283; 73630-LT

== ENCOUNTER 2020-07-31 17:47 | Emergency (ER) | payer BC ==
[~2020-07-31] VITALS: Ht 157.5 cm; Wt 45.4 kg
[2020-07-31 17:58] VITALS: BP 100/63
[2020-07-31] MEDS ORDERED: ATIVAN IM STA (18:04)
--- NOTE | 2020-07-31 18:04 | NUR ---
ARRIVAL PATIENT ARRIVED TO ED4 AMBULATORY, C/O OF ANXIETY TODAY AFTER PUTTING HER DOG TO SLEEP TODAY, PATIENT STATES SHE WAS AT THE VET AND DOG HAS TO BE PUT TO SLEEP AND PATIENT BECAME ANXIOUS,TEARFUL AND CRYING SO FRIEND BROUGHT TO THE ED FOR EVAL. DOCTOR DUSTIN NOTIFIED OF PATIENT'S ARRIVAL.
[2020-07-31] MEDS ORDERED: ATIVAN ONE (18:12)
--- NOTE | 2020-07-31 18:18 | ER.PDOC ---
General Chief Complaint: General Complaint Stated Complaint: ANXIETY TRAVEL OUT OF US: No Time seen by MD: 18:16 Source: patient Exam Limitations: no limitations History of Present Illness Initial Comments Anxiety attack after her dog was put down at the veterinary clinic. She has a history of anxiety. No SI or HI. Timing/Duration: 1 hour Severity: moderate Associated Symptoms: other (anxiety) Allergies: Coded Allergies: No Known Allergies (Unverified , 11/04/14) Home Meds Reported Medications Alprazolam (ALPRAZOLAM) 1 Mg Tablet, 1 MG PO QID, TABLET 11/04/14 Past Medical History Medical History: other Surgical History: other Family History Significant Family History: no pertinent family hx Social History Smoking: less than 1 pack/day Alcohol Use: none Drug Use: marijuana Review of Systems Constitutional: no symptoms reported EENTM: no symptoms reported Respiratory: no symptoms reported Cardiovascular: no symptoms reported Gastrointestinal: no symptoms reported Psychiatric/Neurological: anxiety All Other Systems: Reviewed and Negative Physical Exam General Appearance: No Apparent Distress, Anxious, Other (tearful) EENT: eyes nml inspection, nml ENT inspection, pharynx nml Neck: Non-Tender, Full Range of Motion, Supple, Normal Inspection Respiratory: chest non-tender, lungs clear, normal breath sounds, no respiratory distress, no accessory muscle use CVS: reg rate & rhythm, no murmur, no gallop, pulses nml, nml capillary refill Gastrointestinal: Normal Bowel Sounds, No Organomegaly, No Pulsatile Mass, Non Tender Back: Normal Inspection, No CVA Tenderness, No Vertebral Tenderness Extremities: Normal Range of Motion 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 NML as Tested Skin: Normal Color Results/Orders Results/Orders Orders - JESSICA CHAN MD Lorazepam (Ativan) (07/31/20 18:04) Lorazepam (Ativan) (07/31/20 18:12) Vital Signs Date Time Temp Pulse Resp B/P (MAP) Pulse Ox O2 Delivery O2 Flow Rate FiO2 07/31/20 17:58 98.5 92 18 100/63 (75) 99 Room Air 07/31/20 17:58 98.2 88 18 07/31/20 17:58 98.5 92 18 99 Administered Medications Medications (Trade) Dose Ordered Sig/Candice Route PRN Reason Start Time Stop Time Status Last Admin Dose Admin Lorazepam (Ativan) 1 mg STAT STAT IM 07/31/20 18:04 07/31/20 18:05 DC 07/31/20 18:12 1 MG Progress Progress Patient is feeling better with 1 mg of Ativan. She is ready to go home. ER DEPART Departure Time of Disposition: 18:17 Disposition: 01 HOME, SELF-CARE Impression: Primary Impression: Anxiety Condition: Improved Referrals: RODNEY BERRY TAXI TRUCK DRIVER (PCP) PRIMARY CARE PROVIDER Additional Instructions: Continue home medications Follow-up with PCP in 2 to 3 days Return to ED if worsening symptoms or concerns Duration or Time Spent with Pa: 10 min JESSICA CHAN MD Jul 31, 2020 18:18
== END 2020-07-31 18:19 | disposition home or self-care (01) ==
LOC: ER 17:47
DX: F41.9 Anxiety disorder, unspecified (principal); F17.210 Nicotine dependence, cigarettes, uncomplicated; Z79.899 Other long term (current) drug therapy
CPT/HCPCS: 96372; 99284; J2060

== ENCOUNTER 2020-08-06 10:22 | Emergency (ER) | payer BC ==
[~2020-08-06] VITALS: Ht 162.6 cm; Wt 56.2 kg
[2020-08-06 10:25] VITALS: BP 147/89
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
[2020-08-06] MEDS ORDERED: TORADOL ONE (11:05)
[2020-08-06] MEDS ORDERED: TORADOL IM STA (11:05)
[2020-08-06 11:20] VITALS: BP 138/74
== END 2020-08-06 11:37 | disposition home or self-care (01) ==
LOC: ER 10:22
DX: R07.89 Other chest pain (principal); F17.210 Nicotine dependence, cigarettes, uncomplicated; Z79.1 Long term (current) use of non-steroidal anti-inflammatories (NSAID); Z79.899 Other long term (current) drug therapy; Y08.89XA Assault by other specified means, initial encounter; Y93.89 Activity, other specified; Y92.89 Other specified places as the place of occurrence of the external cause; Y99.8 Other external cause status
CPT/HCPCS: 96372; 99284; J1885

== ENCOUNTER 2020-11-09 09:01 | Emergency (ER) | payer BC ==
[~2020-11-09] VITALS: Ht 162.6 cm; Wt 54.4 kg
[2020-11-09 09:15] VITALS: BP 149/100
[2020-11-09 09:19] VITALS: BP 149/100
--- NOTE | 2020-11-09 09:21 | NUR ---
ARRIVAL PATIENT ARRIVED TO ED4 AMBULATORY, C/O RIGHT FOOT AND RIGHT AND LEFT HAND PAIN FOR THEPAST 2 WEEKS, PATIENT HAS SOME SORES OF UNKNOW ORIGIN AND FEELS LIKE THEY ARE BECOMING INFECTED, CAME TO THE ED FOR EVAL, DOCTOR TRUONG NOTIFIED OF PATIENT'S ARRIVAL.
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
[2020-11-09 09:52] VITALS: BP 149/98
== END 2020-11-09 09:53 | disposition home or self-care (01) ==
LOC: ER 09:01
DX: L98.9 Disorder of the skin and subcutaneous tissue, unspecified (principal); E07.9 Disorder of thyroid, unspecified; F12.90 Cannabis use, unspecified, uncomplicated; Z21 Asymptomatic human immunodeficiency virus [HIV] infection status; Z79.899 Other long term (current) drug therapy
CPT/HCPCS: 99281

== ENCOUNTER → 2021-04-16 | Outpatient (CLI) | payer BC ==
--- NOTE | 2021-04-16 16:48 | DIREP ---
PROCEDURE:CHEST 2 VIEWS COMPARISON:[facility], CR, XRAY CHEST SINGLE VW, 06/27/2017, 07:16 PM. INDICATIONS:F17.218 NICOTINE DEPENDENCE FINDINGS: LUNGS/PLEURA:No significant pulmonary parenchymal abnormalities. No effusions. VASCULATURE:Normal. Unremarkable pulmonary vasculature. CARDIAC:Normal. No cardiac silhouette abnormality or cardiomegaly. MEDIASTINUM:Normal. No visible mass or adenopathy. BONES:Normal. No fracture or visible bony lesion. OTHER:Negative. CONCLUSION:No acute cardiopulmonary abnormality. Dictated by: Ozzie Ventura M.D. on 04/16/2021 at 04:46 PM
== END | disposition home or self-care (01) ==
LOC: RAD 14:47
PROVIDERS: ATTEND Nurse Practitioner Adult Health
DX: F17.218 Nicotine dependence, cigarettes, with other nicotine-induced disorders (principal)
CPT/HCPCS: 71046